=== PATIENT | female | born 1980 | race Caucasian/White ===

== ENCOUNTER 2021-08-22 11:30 | Emergency (ER) | payer OTHER, SELFPAY ==
[2021-08-22 11:49] VITALS: BP 128/87; PULSE 95; RESP 18; TEMP 36.8; O2SAT 99
--- NOTE | 2021-08-22 12:05 | ED.WOUNDLAC ---
HPI - Wound/Laceration General Chief Complaint: Wound/Laceration Stated Complaint: Cut Finger Lt Hand Time Seen by Provider: 08/22/21 12:05 Source: patient Mode of arrival: ambulatory Limitations: no limitations History of Present Illness HPI narrative: Kimi Díaz is a 41 yo female with PMH of depression who cut her finger with a scissors on Wed. Skin is flapped but approximated. Related Data Home Medications Medication Instructions Recorded Confirmed norgestimate-ethinyl estradiol 1 tablet PO DAILY 08/22/21 08/22/21 [Sprintec (28)] sertraline 100 mg PO DAILY 08/22/21 08/22/21 Allergies Allergy/AdvReac Type Severity Reaction Status Date / Time No Known Allergies Allergy Verified 08/22/21 12:04 Review of Systems Review of Systems: CONSTITUTIONAL: Denies fever, chills, sweats. EYES: Denies visual changes, redness, discharge. ENT: Denies rhinorrhea, congestion, sore throat, otalgia. CARDIOVASCULAR: Denies chest pain, palpitations, edema. RESPIRATORY: Denies dyspnea, wheezing, cough GASTROINTESTINAL: Denies abdominal pain, nausea, vomiting, diarrhea. GENITOURINARY: Denies dysuria, hematuria, abnormal discharge SKIN: Denies rash or itching. Small lack to left index finger NEUROLOGIC: Denies numbness, or focal weakness. PSYCHIATRIC: Denies anxiety or depression. [facility] Past Medical History Medical History (Updated 08/22/21 @ 12:25 by Jasmyne Paz CNP) Depression Social History Social History Smoking status: Never smoker Alcohol intake: never Comments At time of signature, I agree with nursing past medical, surgical, social and family history. There is no relevant family history pertinent to the presenting complaint. Exam Narrative: GENERAL: This is a well-nourished, well-developed patient, in mild distress. HEAD: normocephalic, atraumatic. EYES:. Sclera clear/white. Vision is grossly intact. EARS: External ears normal, Hearing grossly intact. NOSE: External nose normal without nasal discharge, nares without redness, no rhinorrhea. THROAT: Mucous membranes moist, NECK: Neck supple, CARDIOVASCULAR: Regular rate and rhythm without murmurs, gallops, or rubs. RESPIRATORY: Clear to auscultation. Breath sounds equal bilaterally. No wheezes, rales, or rhonchi. GASTROINTESTINAL: Abdomen soft, non-tender, SKIN: warm, intact with small flap on left index finger, above the distal joint-no nail involvement NEURO: awake, alert, and oriented to person, place and time. There were no obvious focal neurologic abnormalities. Steady gait EXTREMITIES: Normal range of motion. BACK: Nontender without deformity Course Course Emergency Course: Patient comes with a small flap lac that happened 2 days ago of the left distal finger above the distal digit- the flap length i about 1 cm Patient has had it wrapped x2 days, finger soaked, a few day dots of Dermabond, and Steri-Strips applied. Placed in finger guard-given directions about not getting hand wet for the next 4 to 5 days and keeping guard in place Patient given tetanus immunization Level of Care: Express Care Visit Vital Signs Vital signs: Vital Signs Temperature 98.2 F 08/22/21 11:49 Pulse Rate 95 08/22/21 11:49 Respiratory Rate 18 08/22/21 11:49 Blood Pressure 128/87 08/22/21 11:49 Pulse Oximetry 99 08/22/21 11:49 Temperature 98.2 F 08/22/21 11:49 Pulse Rate 95 08/22/21 11:49 Respiratory Rate 18 08/22/21 11:49 Blood Pressure 128/87 08/22/21 11:49 Pulse Oximetry 99 08/22/21 11:49 MDM - Wound/Laceration Differential Diagnosis Differential diagnosis: Likely laceration, abscess, abrasion, avulsion of skin and other Critical Care Time Critical Care Time Critical Care Time: No Discharge Plan Discharge Clinical Impression: Laceration Patient Disposition: Home, Self-Care Condition: Stable Instructions: Laceration (DC), Skin Adhesive Car
[2021-08-22] MEDS: TETANUS,DIPHTHERIA,AC PERTUSSIS ADULT (0.5 ML) BOOSTRIX IM (12:17)
== END 2021-08-22 12:32 | disposition home or self-care (01) ==
PROVIDERS: Emergency Provider Nurse Practitioner; PCP Internal Medicine
DX: S61.211A Laceration without foreign body of left index finger without damage to nail, initial encounter (principal); W27.2XXA Contact with scissors, initial encounter; Z23 Encounter for immunization; F32.A Depression, unspecified
CPT/HCPCS: 12001; 90471; 90715; 99202; G0463

== ENCOUNTER 2023-01-18 09:08 | Outpatient (CLI) | payer OTHER, SELFPAY ==
[2023-02-02 16:58] VITALS: BMI 41.9
--- NOTE | 2023-02-02 16:58 | WPDHOMESLEEP ---
Sleep Study - Home Unattended Date of Study: 01/18/23 Ordering Provider: Richard Munson APRN Interpreting Provider: Reva Marti, DO Home Sleep Study Type: Watch PAT Height: 1.68 m Weight: 117.934 kg Body Mass Index: 41.9 Neck Circumference (inches): 16 [place]: 5 Reason for Sleep Study Loud snoring, daytime hypersomnia Sleep History The patient is a 42-year-old female that had a sleep study ordered by the pulmonary group for evaluation of sleep apnea. The patient rarely awakens from sleep short of breath. She rarely awakens at night with heartburn, belching or cough. She constantly snores loudly enough that others complain. She constantly has trouble sleeping when she has a cold. She rarely wakes up gasping for air throughout the night. She constantly sweats excessively at night. She denies having heart palpitations or irregular heartbeats during the night. She occasionally falls asleep during the day but never while driving. She denies sleep paralysis, cataplexy and hypnagogic / hypnopompic hallucinations. She frequently has trouble at school or work due to sleepiness. She denies feeling afraid of going to sleep. She denies having nightmares. She rarely remembers her dreams. She occasionally has thoughts racing through her mind. She occasionally feels sad, depressed and anxious. She denies having muscular tension. She rarely notices parts of her body jerk. She denies kicking during the night. She denies having crawling and aching feelings in her legs and denies having leg pain during the night. She denies grinding her teeth during sleep and denies awakening with morning jaw pain. She denies being bothered by pain during the day and denies being awakened by pain during the night. She denies waking up feeling stiff in the morning. She denies waking up with sore achy muscles. She denies waking up with pain in the neck, spine or other joints. She goes to bed at midnight on weekdays and at 12:30 a.m. on the weekends. It takes her a few minutes to fall asleep. She wakes up 3-4 times throughout the night to urinate and is able to fall back asleep within 5 minutes. She wakes up at 7:30 a.m. on weekdays and 8:30 a.m. on the weekdays. She typically gets 7-8 hours of sleep per night. She will stay in bed for 5-10 minutes after waking up in the morning. She currently lives with her and 2 children. She denies consuming any caffeinated beverages within 2 hours of bedtime. She denies engaging in physical exercise before bedtime. She will read and watch television before falling asleep. She will occasionally take naps in the afternoon or the evening but they are not refreshing. She consumes 28 oz of iced tea per day. She denies tobacco, alcohol and recreational drug use. [facility] Past Medical History Medical History Anxiety Depression Vitamin D deficiency Family History Family History Grandparent Alcohol abuse Sudden cardiac Sibling Depression Anxiety Social History Social History Smoking status: Never smoker Alcohol intake: never Medications Home Medications Medication Instructions Recorded Confirmed Type norgestimate 0.25 mg-ethinyl 1 tablet PO DAILY 08/22/21 08/22/21 History estradiol 35 mcg tablet (Sprintec (28)) alprazolam 0.5 mg tablet 0.5 mg PO DAILY PRN 12/03/22 12/04/22 History sertraline 100 mg tablet 200 mg PO DAILY 12/04/22 12/04/22 History Sleep Procedure The sleep study was completed using TroveboxT a technically adequate device with seven channels: peripheral arterial tone, actigraphy, body position, snore, respiratory movement, pulse oximetry, sleep staging, and heart rate. Prior to using the device, the patient received verbal and written instructions for its application and was pr
== END 2023-01-19 09:53 | disposition home or self-care (01) ==
LOC: ANHCSM 09:08
PROVIDERS: PCP Nurse Practitioner Family; Visit Provider Nurse Practitioner Family
DX: G47.30 Sleep apnea, unspecified (principal)
CPT/HCPCS: 95800